=== PATIENT | male | born 1970 | race Caucasian/White ===

== ENCOUNTER 2018-10-04 11:19 | Observation (INO) | payer OTHER ==
[~2018-10-04] VITALS: Ht 182.9 cm; Wt 95.6 kg
[2018-10-04 11:40] LABS: HEMATOCRIT 43.8 % (39.0-50.0); HEMOGLOBIN 15.2 g/dl (14.0-18.0); IMMATURE GRANULOCYTES 0.8 % (0.0-5.0); MEAN CELL VOLUME 83.9 fL CALC (80.0-100.0); MEAN CORPUSCULAR HGB 29.1 pG CALC (26.0-32.0); MEAN CORPUSCULAR HGB CONC 34.7 g/L CALC (32.0-36.0); NEUT# 9.56 thou/uL (1.82-7.42); RED BLOOD COUNT 5.22 mill/uL (4.70-6.10); RED CELL DISTRI WIDTH 12.7 % (11.5-15.5)
[2018-10-04] MEDS ORDERED: LANTUS100 UNIT/M SC (11:55)
[2018-10-04] MEDS ORDERED: METFORMIN1000 MG PO (11:57)
[2018-10-04] MEDS ORDERED: NOVOLOG100 UNIT/M SC (11:57)
[2018-10-04] MEDS ORDERED: DULOXETINE HCL60 MG PO (11:58)
[2018-10-04] MEDS ORDERED: METOPROLOL SUCC50 MG PO (11:59)
[2018-10-04] MEDS ORDERED: LOSARTAN POT25 MG PO (12:02)
[2018-10-04] MEDS ORDERED: METO50TA52 PO (12:02)
[2018-10-04 12:03] LABS: ALBUMIN 4.9 g/dL (3.2-5.0); ALKALINE PHOSPHATASE 75 u/l (38-126); ANION GAP 22 (6-22 (CALC)); BILIRUBIN, TOTAL 0.6 mg/dL (0.0-1.4); BUN 14 mg/dL (9-20); BUN/CREATININE RATIO 19 (12-20 (CALC)); CARBON DIOXIDE 21 mmol/l (22-30); CHLORIDE 101 mmol/l (95-108); CREATININE 0.7 mg/dL (0.7-1.3); GFR > 60 ML/MIN (>=60 (CALC)); GFR FOR AFR.AMER. > 60 ML/MIN (>=60 (CALC)); SGOT/AST 24 u/l (17-59); SODIUM 140 mmol/l (137-146); TOTAL PROTEIN 7.9 g/dL (6.3-8.2)
[2018-10-04] MEDS ORDERED: AMITRIPTYLIN50 MG PO (12:03)
[2018-10-04 13:43] LABS: BARBITURATES NEGATIVE (NEGATIVE); COCAINE NEGATIVE (NEGATIVE); METHADONE NEGATIVE (NEGATIVE); OXCYCODONE NEGATIVE (NEGATIVE); TETRAHYDROCANNABIONOL NEGATIVE (NEGATIVE); TRICYLIC ANTIDEPRESSANTS NEGATIVE (NEGATIVE)
[2018-10-04 14:44] LABS: ALKALINE PHOSPHATASE 63 u/l (38-126); ANION GAP 18 (6-22 (CALC)); BILIRUBIN, TOTAL 0.6 mg/dL (0.0-1.4); BUN 13 mg/dL (9-20); BUN/CREATININE RATIO 22 (12-20 (CALC)); CARBON DIOXIDE 18 mmol/l (22-30); CHLORIDE 106 mmol/l (95-108); CREATININE 0.6 mg/dL (0.7-1.3); GFR > 60 ML/MIN (>=60 (CALC)); GFR FOR AFR.AMER. > 60 ML/MIN (>=60 (CALC)); POTASSIUM 4.5 mmol/l (3.5-5.1); SGOT/AST 32 u/l (17-59); SODIUM 138 mmol/l (137-146); TOTAL PROTEIN 6.6 g/dL (6.3-8.2)
[2018-10-04 17:50] VITALS: BP 152/80
[2018-10-04 20:44] VITALS: BP 150/79
[2018-10-04 23:37] VITALS: BP 142/65
[2018-10-05 04:25] VITALS: BP 128/56
[2018-10-05 05:19] LABS: HEMATOCRIT 40.1 % (39.0-50.0); HEMOGLOBIN 13.4 g/dl (14.0-18.0); IMMATURE GRANULOCYTES 0.3 % (0.0-5.0); MEAN CELL VOLUME 87.2 fL CALC (80.0-100.0); MEAN CORPUSCULAR HGB 29.1 pG CALC (26.0-32.0); MEAN CORPUSCULAR HGB CONC 33.4 g/L CALC (32.0-36.0); NEUT# 5.74 thou/uL (1.82-7.42); RED BLOOD COUNT 4.6 mill/uL (4.70-6.10); RED CELL DISTRI WIDTH 13.3 % (11.5-15.5)
[2018-10-05 05:39] LABS: ALKALINE PHOSPHATASE 54 u/l (38-126); AMYLASE 282 u/l (30-110); ANION GAP 15 (6-22 (CALC)); BILIRUBIN, TOTAL 0.6 mg/dL (0.0-1.4); BUN 14 mg/dL (9-20); BUN/CREATININE RATIO 20 (12-20 (CALC)); CHLORIDE 105 mmol/l (95-108); CREATININE 0.7 mg/dL (0.7-1.3); GFR > 60 ML/MIN (>=60 (CALC)); GFR FOR AFR.AMER. > 60 ML/MIN (>=60 (CALC)); LIPASE 44 u/l (23-300); MAGNESIUM 1.9 mg/dL (1.6-2.3); POTASSIUM 4.3 mmol/l (3.5-5.1); SGOT/AST 21 u/l (17-59); SODIUM 140 mmol/l (137-146); TOTAL PROTEIN 6.4 g/dL (6.3-8.2)
[2018-10-05 05:43] LABS: CARBON DIOXIDE 24 mmol/l (22-30)
[2018-10-05 09:20] VITALS: BP 144/84
[2018-10-05 12:55] VITALS: BP 134/83
[2018-10-05] MEDS ORDERED: PROTONIX40 M2 PO (15:51)
[2018-10-05 15:52] VITALS: BP 156/86
== END 2018-10-05 16:15 | disposition home or self-care (01) | DRG 392 ==
LOC: ED 11:19 → ED-I 15:36 → ED 16:04 → MS2 16:05
PROVIDERS: Emergency Medicine; ADMIT Internal Medicine Nephrology; ATTEND Internal Medicine Nephrology
DX: R10.13 Epigastric pain (principal); K92.0 Hematemesis; K44.9 Diaphragmatic hernia without obstruction or gangrene; R07.9 Chest pain, unspecified; K21.9 Gastro-esophageal reflux disease without esophagitis; E87.2 Acidosis; I10 Essential (primary) hypertension; E11.9 Type 2 diabetes mellitus without complications; K59.00 Constipation, unspecified; R19.7 Diarrhea, unspecified; Z79.4 Long term (current) use of insulin
CPT/HCPCS: G0378; Q9967

== ENCOUNTER 2019-06-21 12:59 | Observation (INO) | payer OTHER ==
[~2019-06-21] VITALS: Ht 182.9 cm; Wt 100.0 kg
[~2019-06-21 12:59] MED LIST: AMITRIPTYLIN50 MG PO; DULOXETINE HCL60 MG PO; LANTUS100 UNIT/M SC; LOSARTAN POT25 MG PO; METFORMIN1000 MG PO; METO50TA52 PO; METOPROLOL SUCC50 MG PO; NOVOLOG100 UNIT/M SC; PROTONIX40 M2 PO
--- NOTE | 2019-06-21 13:40 | NUR ---
PT TO ROOM VIA WC PALE AND DIAPHORETIC, BEDSID EKG PERFORMED
--- NOTE | 2019-06-21 14:00 | NUR ---
PT ACTIVELY VOMITING. ORDERS RECEIVED
[2019-06-21 14:41] LABS: HEMATOCRIT 38.6 % (39.0-50.0); HEMOGLOBIN 13.1 g/dl (14.0-18.0); IMMATURE GRANULOCYTES 0.4 % (0.0-5.0); MEAN CORPUSCULAR HGB 27.7 pG CALC (26.0-32.0); MEAN CORPUSCULAR HGB CONC 33.9 g/dL CAL (32.0-36.0); NEUT# 8.36 thou/uL (1.82-7.42); RED BLOOD COUNT 4.73 mill/uL (4.70-6.10); RED CELL DISTRI WIDTH 14.3 % (11.5-15.5)
[2019-06-21 14:46] LABS: MEAN CELL VOLUME 81.6 fL CALC (80.0-100.0)
[2019-06-21 14:57] LABS: AMYLASE 204 u/l (30-110); ANION GAP 23 (6-22 (CALC)); BILIRUBIN, TOTAL 0.7 mg/dL (0.0-1.4); BUN 17 mg/dL (9-20); BUN/CREATININE RATIO 25 (12-20 (CALC)); CARBON DIOXIDE 21 mmol/l (22-30); CHLORIDE 99 mmol/l (95-108); CREATININE 0.7 mg/dL (0.7-1.3); GFR > 60 ML/MIN (>=60 (CALC)); GFR FOR AFR.AMER. > 60 ML/MIN (>=60 (CALC)); LIPASE 55 u/l (23-300); POTASSIUM 5.1 mmol/l (3.5-5.1); SGOT/AST 34 u/l (17-59); SODIUM 138 mmol/l (137-146)
[2019-06-21 15:00] LABS: ALKALINE PHOSPHATASE 84 u/l (38-126); TOTAL PROTEIN 8.3 g/dL (6.3-8.2)
[2019-06-21 15:12] LABS: MYOGLOBIN 27 ng/mL (0 - 121)
--- NOTE | 2019-06-21 15:37 | NUR ---
VOMITING HAS SUBSIDED AT THIS TIME
--- NOTE | 2019-06-21 16:38 | NUR ---
PT STATES STILL FEELS NAUSEATED, NO VOMITING LATELY. PT REMAINS WATCHING TV.
--- NOTE | 2019-06-21 17:38 | NUR ---
NOTIFIED OF PTS BLOOD PRESSURE OF , NO NEW ORDERS. NO VOMITING BUT STILL STATES FEELS NAUSEATED, STATES DOESNT THINK HE CAN GO HOME. THINKS IT IS FOOD POISONING
--- NOTE | 2019-06-21 18:02 | NUR ---
NO VOMITING IN LAST 2 HOURS.
[2019-06-21 18:17] LABS: URINE BILIRUBIN - DIPSTICK NEGATIVE (NEGATIVE); URINE BLOOD DIPSTICK NEGATIVE (NEGATIVE); URINE COLOR YELLOW; URINE GLUCOSE - DIPSTICK >=1000 mg/dL (NEGATIVE); URINE KETONE 40 mg/dL (NEGATIVE); URINE LEUK ESTERASE NEGATIVE (NEGATIVE); URINE NITRITE - DIPSTICK NEGATIVE (Negative); URINE PH 5.5 (4.5-8.0); URINE PROTEIN - DIPSTICK NEGATIVE (NEG-TRACE); URINE SPECIFIC GRAVITY 1.025; URINE UROBILINOGEN - DIPSTICK 0.2 E.U./dL (0.2)
[2019-06-21 19:05] VITALS: BP 158/86
--- NOTE | 2019-06-21 19:23 | NUR ---
CALLED REPORT TO FLOOR NURSE IS BUSY, WILL CALL ME BACK FOR REPORT
--- NOTE | 2019-06-21 19:52 | NUR ---
PT TAKEN TO FLOOR PER W/C
--- NOTE | 2019-06-21 20:05 | NUR ---
COMMUNICATION HAND OFF RECEIVED FROM DONELL REBOLLEDO. PT ORIENTED TO ROOM, CALL LIGHT, TV, AND BED CONTROL. ADMISSION CHARTING COMPLETED. POC REVIEWED WITH PATIENT. PT COMPLAIN OF GAS PAIN. KAILYN FROM [facility] CALLED TO CLARIFY METOPROLOL ORDER. DR SANZ NOTIFIED. DR MUÑOZ ALSO NOTIFIED OF PT'S COMPLAIN OF GAS PAIN. RUBBER TUBING SPLICER WILL CONTINUE TO MONITOR
--- NOTE | 2019-06-21 22:30 | NUR ---
PATIENT GIVEN APPLE JUICE. BUSINESS CONTROLLER JERAMY CONTINUE TO MONITOR
--- NOTE | 2019-06-22 | NUR ---
PATIENT IS SLEEPING AT THIS TIME. RESPIRATION IS EVEN AND UNLABORED.
[2019-06-22 04:00] VITALS: BP 112/62
--- NOTE | 2019-06-22 04:36 | NUR ---
PT DENIES PAIN AT THIS TIME. NO S/S OF DISTRESS. PT AGREES TO NOTIFY TECHNICAL ASST OF ANY CONCERNS. TECHNICAL ASST WILL CONTINUE TO MONITOR
--- NOTE | 2019-06-22 07:20 | NUR ---
REPORT RECEIVED DONELL LOZANO. PT RESTING IN BED ON LEFT SIDE WITH EYES CLOSED; AWAKENS SPONTANEOUSLY. C/O SOME CHEST/ABDOMINAL DISCOMFORT R/T COUGHING. RESPIATIONS EVEN AND UNLABORED ON ROOM AIR. DENIES NAUSEA. PLAN OF CARE REVIEWED. PT ENCOURAGED TO VERBALIZE CONCERNS. STATES UNDERSTANDING. SAFETY MEASURES IN PLACE. CALL LIGHT WITHIN REACH.
[2019-06-22 07:58] VITALS: BP 113/59
[2019-06-22] MEDS ORDERED: ZOFRAN4 MG/TAB PO (11:49)
[2019-06-22 11:50] VITALS: BP 112/73
--- NOTE | 2019-06-22 11:51 | NUR ---
DR. SANZ AT BEDSIDE.
--- NOTE | 2019-06-22 12:25 | NUR ---
IV site discontinued, cath intact. No edema , no redness, voices no discomfort.
--- NOTE | 2019-06-22 12:53 | NUR ---
Discharge instructions given. Patient verbalizes understanding of same. Discharged in stable condition via Ambulatory to Home. All belongings sent with pt.
== END 2019-06-22 12:55 | disposition home or self-care (01) | DRG 392 ==
LOC: ED 12:59 → ED-I 18:28 → ED 18:39 → ED-I 18:40 → MS2 19:05
PROVIDERS: Family Medicine; ADMIT Internal Medicine; ATTEND Internal Medicine
DX: K52.9 Noninfective gastroenteritis and colitis, unspecified (principal); I10 Essential (primary) hypertension; E11.9 Type 2 diabetes mellitus without complications; Z79.4 Long term (current) use of insulin
CPT/HCPCS: G0378; J1650

== ENCOUNTER 2020-04-05 13:17 | Emergency (ER) | payer OTHER ==
[~2020-04-05] VITALS: Ht 182.9 cm; Wt 105.0 kg
[~2020-04-05 13:17] MED LIST changes: +ZOFRAN4 MG/TAB PO
[2020-04-05 14:43] LABS: IMMATURE GRANULOCYTES 0.5 % (0.0-5.0); MEAN CELL VOLUME 83.8 fL CALC (80.0-100.0); MEAN CORPUSCULAR HGB 27.8 pG CALC (26.0-32.0); MEAN CORPUSCULAR HGB CONC 33.2 g/dL CAL (32.0-36.0); NEUT# 7.16 thou/uL (1.82-7.42); RED BLOOD COUNT 5.61 mill/uL (4.70-6.10); RED CELL DISTRI WIDTH 13.2 % (11.5-15.5)
[2020-04-05 14:44] LABS: HEMOGLOBIN 15.6 g/dl (14.0-18.0)
[2020-04-05 15:00] LABS: ALBUMIN 4.8 g/dL (3.2-5.0); ALKALINE PHOSPHATASE 99 u/l (38-126); AMYLASE 274 u/l (30-110); ANION GAP 21 (6-22 (CALC)); BILIRUBIN, TOTAL 0.7 mg/dL (0.0-1.4); BUN 12 mg/dL (9-20); BUN/CREATININE RATIO 15 (12-20 (CALC)); CARBON DIOXIDE 20 mmol/l (22-30); CHLORIDE 101 mmol/l (95-108); CREATININE 0.8 mg/dL (0.7-1.3); GFR > 60 ML/MIN (>=60 (CALC)); GFR FOR AFR.AMER. > 60 ML/MIN (>=60 (CALC)); LIPASE 255 u/l (23-300); SGOT/AST 45 u/l (17-59); SODIUM 138 mmol/l (137-146); TOTAL PROTEIN 8.5 g/dL (6.3-8.2)
[2020-04-05 15:08] LABS: POTASSIUM 3.5 mmol/l (3.5-5.1)
[2020-04-05 16:09] LABS: MYOGLOBIN 22 ng/mL (0 - 121)
[2020-04-05] MEDS ORDERED: ONDANSETRON4 MG PO (17:10)
[2020-04-05] MEDS ORDERED: PREVACID30 M3 PO (17:10)
[2020-04-05] MEDS ORDERED: LORTAB 1010 MG PO (17:10)
[2020-04-05 17:37] VITALS: BP 183/89
[2020-04-06] MEDS ORDERED: INSULIN AS100 UNIT/M SC (01:14)
[2020-04-06] MEDS ORDERED: PHENERGAN25 MG RE (01:40)
== END 2020-04-05 17:48 | disposition home or self-care (01) | DRG 392 ==
LOC: ED 13:17
PROVIDERS: Emergency Medicine
DX: R10.13 Epigastric pain (principal); I10 Essential (primary) hypertension; E11.43 Type 2 diabetes mellitus with diabetic autonomic (poly)neuropathy; K31.84 Gastroparesis; Z79.4 Long term (current) use of insulin; Z20.822 Contact with and (suspected) exposure to COVID-19
CPT/HCPCS: Q9967; S0164

== ENCOUNTER 2020-04-06 00:10 | Emergency (ER) | payer OTHER ==
[~2020-04-06] VITALS: Ht 182.9 cm; Wt 105.0 kg
[~2020-04-06 00:10] MED LIST changes: +LORTAB 1010 MG PO; +ONDANSETRON4 MG PO; +PREVACID30 M3 PO
[2020-04-06 00:52] LABS: HEMATOCRIT 47.5 % (39.0-50.0); HEMOGLOBIN 15.9 g/dl (14.0-18.0); IMMATURE GRANULOCYTES 0.2 % (0.0-5.0); MEAN CELL VOLUME 82.3 fL CALC (80.0-100.0); MEAN CORPUSCULAR HGB 27.6 pG CALC (26.0-32.0); MEAN CORPUSCULAR HGB CONC 33.5 g/dL CAL (32.0-36.0); NEUT# 10.83 thou/uL (1.82-7.42); RED BLOOD COUNT 5.77 mill/uL (4.70-6.10); RED CELL DISTRI WIDTH 13.4 % (11.5-15.5)
[2020-04-06 01:13] LABS: ALBUMIN 5.1 g/dL (3.2-5.0); ALKALINE PHOSPHATASE 103 u/l (38-126); AMYLASE 241 u/l (30-110); ANION GAP 25 (6-22 (CALC)); BILIRUBIN, TOTAL 0.7 mg/dL (0.0-1.4); BUN 13 mg/dL (9-20); BUN/CREATININE RATIO 16 (12-20 (CALC)); CARBON DIOXIDE 18 mmol/l (22-30); CHLORIDE 102 mmol/l (95-108); CREATININE 0.8 mg/dL (0.7-1.3); GFR > 60 ML/MIN (>=60 (CALC)); GFR FOR AFR.AMER. > 60 ML/MIN (>=60 (CALC)); LIPASE 52 u/l (23-300); POTASSIUM 4.2 mmol/l (3.5-5.1); SGOT/AST 45 u/l (17-59); SODIUM 140 mmol/l (137-146); TOTAL PROTEIN 8.7 g/dL (6.3-8.2)
[2020-04-06] MEDS ORDERED: INSULIN AS100 UNIT/M SC (01:14)
[2020-04-06] MEDS ORDERED: PHENERGAN25 MG RE (01:40)
[2020-04-06 04:10] VITALS: BP 164/84
== END 2020-04-06 04:10 | disposition home or self-care (01) | DRG 392 ==
LOC: ED 00:10
PROVIDERS: Family Medicine
DX: R10.13 Epigastric pain (principal); R11.2 Nausea with vomiting, unspecified; I10 Essential (primary) hypertension; E11.43 Type 2 diabetes mellitus with diabetic autonomic (poly)neuropathy; K31.84 Gastroparesis; Z79.4 Long term (current) use of insulin
CPT/HCPCS: S0164

== ENCOUNTER 2020-05-14 00:47 | Observation (INO) | payer OTHER ==
[~2020-05-14] VITALS: Ht 182.9 cm; Wt 105.4 kg
[2020-05-14] VITALS (8 sets, daily range): BP systolic 135–169; BP diastolic 61–96
[~2020-05-14 00:47] MED LIST changes: +INSULIN AS100 UNIT/M SC; +PHENERGAN25 MG RE
--- NOTE | 2020-05-14 00:51 | NUR ---
TO TX ROOM WITH STEADY GAIT
--- NOTE | 2020-05-14 01:00 | NUR ---
PT BROUGHT IN BY SO FOR COMPLAINT OF TAKING TOO MUCH OF HIS THC GUMMIES TONIGHT IN ATTEMPT TO TRY AND SLEEP TONIGHT HE RECENTLY RAN OUT OF HIS GABAPENTIN THAT HE STATES HE TAKES TO TRY AND HELP HIM SLEEP. PT IS ALERT AND ORIENTED TO PERSON. UNABLE TO DESCRIBE WHERE HE IS CURRENTLY BUT STATES "IM IN A DIFFERENT REALITY RIGHT NOW, THIS ISNT HOW IT WAS BEFORE. I FEEL LIKE I AM IN A DIFFERENT PLACE. IM TRYING TO UNDERSTANDING WHATS GOING ON BUT I CANT." PT'S SIGNIFICANT OTHER REPORTS HE BECAME THIS WAY [address] [address] LAST NIGHT AND THIS TYPE OF EPISODE HAS NEVER HAPPENED BEFORE. PT REFUSING IV LINE AT THIS TIME BUT CONSENTED FOR BLOOD DRAW AT THIS TIME. VICE [employer] POLICE OFFICER IN PLACE. CHANGED INTO GOWN.
[2020-05-14] MEDS ORDERED: ATORVASTATIN CA10 MG PO (01:18)
[2020-05-14] MEDS ORDERED: METOPROLOL SUCC50 MG PO (01:19)
--- NOTE | 2020-05-14 01:20 | NUR ---
EVAL BY . AFTER WHICH, STROKE ALERT CALLED BY
--- NOTE | 2020-05-14 01:20 | NUR ---
DR LANG IN ROOM FOR EVAL AND REQUESTS STROKE ALERT BE CALLED FOR AMS.
--- NOTE | 2020-05-14 01:24 | NUR ---
IN RADIOLOGY WITH PT FOR CT SCAN. TELE NEURO DR VALENTINE ON LINE FOR PT EVAL OF STROKE ALERT. PER DR TOVAR NIH OF 0 AND MORE OF A AMS R/T THC INGESTION. CT SCANS PERFORMED PER ORDER. PT TOLERATED WELL. PT CONSENTED FOR IV START WHILE IN CT.
[2020-05-14 01:48] LABS: HEMATOCRIT 43.1 % (39.0-50.0); IMMATURE GRANULOCYTES 0.3 % (0.0-5.0); MEAN CELL VOLUME 86.5 fL CALC (80.0-100.0); MEAN CORPUSCULAR HGB 28.1 pG CALC (26.0-32.0); MEAN CORPUSCULAR HGB CONC 32.5 g/dL CAL (32.0-36.0); NEUT# 4.53 thou/uL (1.82-7.42); RED BLOOD COUNT 4.98 mill/uL (4.70-6.10); RED CELL DISTRI WIDTH 14.2 % (11.5-15.5)
--- NOTE | 2020-05-14 02:00 | NUR ---
RETURN FROM RADIOLOGY. PT CONTINUES TO SPEAK IN AN UNORGANIZED PATTERN. STATES " I WANTED TO KILL MYSELF IN THAT OTHER REALITY, I WANTED TO FALL OFF OF THE BED." PT IS NOW ALERT TO SELF, PLACE AND TIME. UNABLE TO RECALL EVENTS LEADING UP TO VISIT TONIGHT. PT S/O REPORTS BEING SEEN AT [facility] ED 2-3 DAYS AGO FOR "NOT FEELING GOOD." UNABLE TO TO ELABORATE DIAGNOSIS OR OUTCOME FROM VISIT.
[2020-05-14 02:05] LABS: ACT PARTIAL THROMBO TIME 24.8 SECONDS (20.0-32.5); PROTHROMBIN TIME 10.4 SECONDS (9.0-12.5)
[2020-05-14 02:06] LABS: ALBUMIN 4.3 g/dL (3.2-5.0); ALKALINE PHOSPHATASE 66 u/l (38-126); ANION GAP 12 (6-22 (CALC)); BILIRUBIN, TOTAL 0.5 mg/dL (0.0-1.4); BUN 16 mg/dL (9-20); BUN/CREATININE RATIO 20 (12-20 (CALC)); CARBON DIOXIDE 25 mmol/l (22-30); CHLORIDE 102 mmol/l (95-108); CREATININE 0.8 mg/dL (0.7-1.3); ETHYL ALCOHOL 0 mg/dl (0-30); GFR > 60 ML/MIN (>=60 (CALC)); GFR FOR AFR.AMER. > 60 ML/MIN (>=60 (CALC)); LIPASE 77 u/l (23-300); MAGNESIUM 2.2 mg/dL (1.6-2.3); SGOT/AST 46 u/l (17-59); SODIUM 135 mmol/l (137-146); TOTAL PROTEIN 7.4 g/dL (6.3-8.2)
--- NOTE | 2020-05-14 03:10 | NUR ---
PT PROVIDED URINAL TO PROVIDE URINE SAMPLE. RESTING ON STRETCHER WITH EYES CLOSED AND WARM BLANKET PROVIDED.
--- NOTE | 2020-05-14 04:00 | NUR ---
PT RESTING ON STRETCHER IN NAD. RESP EVEN AND UNLABORED. SKIN WARM AND DRY. TUBE BUILDER IN PLACE. SITTER BEDSIDE WITH PT.
--- NOTE | 2020-05-14 05:00 | NUR ---
PT RESTING ON STRETCHER IN NO APPARENT DISTRESS. RESP EVEN AND UNLABORED. SKIN WARM AND DRY. SKIN WARM AND DDRY. SITTER BEDSIDE.
--- NOTE | 2020-05-14 06:00 | NUR ---
PT RESTING ON STRETCHER IN NO APPARENT DISTRESS. RESP EVEN AND UNLABORED. SKIN WARM AND DRY. SOCIAL ORGANIZATION PROFESSOR IN PLACE SHOWING SR @ 88. SPO2 @ 98 %RA.
--- NOTE | 2020-05-14 06:45 | NUR ---
PT REPORT PROVIDED TO SHARRON MARLEY
--- NOTE | 2020-05-14 07:00 | NUR ---
PT RESTING ON STRETCHER WITH EYES CLOSED RESPONDS TO VERBAL STIMULI, IV SITE HEALTHY. VSS. RESP EVEN AND UNLABORED.
--- NOTE | 2020-05-14 07:05 | NUR ---
REPORT GIVEN TO ANUJA MARLEY
--- NOTE | 2020-05-14 07:43 | NUR ---
PT TO ICU RM 4 VIA STRETCHER IN STABLE CONDITION. IV SITE HEALTHY. FLUIDS INFUSING. VSS. ACCOMPANIED BY STAFF AND SITTER.
[2020-05-14] MEDS ORDERED: LIPITOR20 M1 PO (08:04)
[2020-05-14] MEDS ORDERED: TRESIBA100 UNIT/M SC (08:05)
[2020-05-14] MEDS ORDERED: HALCION0.25 M1 PO (08:06)
[2020-05-14] MEDS ORDERED: GABAPENTIN100 MG PO (08:06)
--- NOTE | 2020-05-14 08:30 | NUR ---
PT RECEIVED FROM ER VIA STRETCHER ACCOMPANIED BY SHARRON MARLEY. PT IS QUIET, UNASSUMING, BUT IS CONFUSED WHEN CONVERSATION IS ATTEMPTED. PT WAS ABLE TO PROVIDE URINE SPECIMEN, SENT TO LAB FOR ANALYSIS. PT SEEN BY DR VILLARREAL SHORTLY AFTER ARRIVAL, WILL MEDICALLY CLEAR IF DRUG SCREEN IS CLEAR. PT IN NO DISTRESS, OFFERS NO COMPLAINTS.
[2020-05-14 08:46] LABS: URINE BILIRUBIN - DIPSTICK NEGATIVE (NEGATIVE); URINE BLOOD DIPSTICK NEGATIVE (NEGATIVE); URINE COLOR YELLOW; URINE GLUCOSE - DIPSTICK >=1000 mg/dL (NEGATIVE); URINE KETONE NEGATIVE (NEGATIVE); URINE LEUK ESTERASE NEGATIVE (NEGATIVE); URINE NITRITE - DIPSTICK NEGATIVE (Negative); URINE PH 5.5 (4.5-8.0); URINE PROTEIN - DIPSTICK NEGATIVE (NEG-TRACE); URINE SPECIFIC GRAVITY 1.025; URINE UROBILINOGEN - DIPSTICK 0.2 E.U./dL (0.2)
--- NOTE | 2020-05-14 10:34 | NUR ---
IV SITE TO RAC REMOVED WITH CATHETER INTACT, PT TOLERATED WELL.
--- NOTE | 2020-05-14 11:01 | NUR ---
PT LEAVES FOR [facility] WITH WINDOW GLAZIER HELPER AT THIS TIME. PT ABLE TO BEAR HIS OWN WEIGHT, TRANSFERS TO WHEELCHAIR WITHOUT ANY PROBLEM.
== END 2020-05-14 11:00 | DRG 917 ==
LOC: ED 00:47 → ED-I 01:26 → ED 02:58 → ED-I 02:59 → ICU 08:01
PROVIDERS: ADMIT Internal Medicine; ATTEND Internal Medicine
DX: T40.7X1A Poisoning by cannabis (derivatives), accidental (unintentional), initial encounter (principal); G92 Toxic encephalopathy; R45.851 Suicidal ideations; I10 Essential (primary) hypertension; E11.43 Type 2 diabetes mellitus with diabetic autonomic (poly)neuropathy; K31.84 Gastroparesis; F32.9 Major depressive disorder, single episode, unspecified; T42.6X6A Underdosing of other antiepileptic and sedative-hypnotic drugs, initial encounter; Z79.4 Long term (current) use of insulin; Y92.009 Unspecified place in unspecified non-institutional (private) residence as the place of occurrence of the external cause; Z91.128 Patient's intentional underdosing of medication regimen for other reason; Z20.822 Contact with and (suspected) exposure to COVID-19

== ENCOUNTER 2021-05-23 00:37 | Emergency (ER) | payer OTHER ==
[~2021-05-23] VITALS: Ht 182.9 cm; Wt 105.0 kg
[~2021-05-23 00:37] MED LIST changes: +ATORVASTATIN CA10 MG PO; +GABAPENTIN100 MG PO; +HALCION0.25 M1 PO; +LIPITOR20 M1 PO; +TRESIBA100 UNIT/M SC
[2021-05-23] MEDS ORDERED: GABAPENTIN300 M2 PO (01:07)
[2021-05-23] MEDS ORDERED: OMEPRAZOLE20 MG PO (01:08)
[2021-05-23] MEDS ORDERED: LOSARTAN POTASS50 MG PO (01:09)
[2021-05-23] MEDS ORDERED: FLUOXETINE20 MG PO (01:09)
[2021-05-23] MEDS ORDERED: ALPRAZOLAM0.25 MG PO (01:10)
[2021-05-23] MEDS ORDERED: HALCION0.25 M1 PO (01:11)
[2021-05-23 01:24] LABS: IMMATURE GRANULOCYTES 0.3 % (0.0-5.0); MEAN CELL VOLUME 90.1 fL CALC (80.0-100.0); MEAN CORPUSCULAR HGB 32.4 pG CALC (26.0-32.0); NEUT# 5.94 thou/uL (1.82-7.42); RED BLOOD COUNT 5.58 mill/uL (4.70-6.10); RED CELL DISTRI WIDTH 12.2 % (11.5-15.5)
[2021-05-23 01:27] LABS: HEMATOCRIT 50.3 % (39.0-50.0); HEMOGLOBIN 18.1 g/dl (14.0-18.0)
[2021-05-23 01:44] LABS: ALBUMIN 5.1 g/dL (3.2-5.0); ALKALINE PHOSPHATASE 73 u/l (38-126); AMYLASE 226 u/l (30-110); ANION GAP 24 (6-22 (CALC)); BILIRUBIN, TOTAL 0.6 mg/dL (0.0-1.4); BUN 17 mg/dL (9-20); BUN/CREATININE RATIO 17 (12-20 (CALC)); CARBON DIOXIDE 20 mmol/l (22-30); CHLORIDE 101 mmol/l (95-108); GFR > 60 ML/MIN (>=60 (CALC)); GFR FOR AFR.AMER. > 60 ML/MIN (>=60 (CALC)); LIPASE 65 u/l (23-300); POTASSIUM 3.6 mmol/l (3.5-5.1); SGOT/AST 34 u/l (17-59); SODIUM 141 mmol/l (137-146)
[2021-05-23 01:45] LABS: TOTAL PROTEIN 9.1 g/dL (6.3-8.2)
[2021-05-23 01:55] LABS: MYOGLOBIN 27 ng/mL (0 - 121)
[2021-05-23 02:42] LABS: URINE BILIRUBIN - DIPSTICK NEGATIVE (NEGATIVE); URINE BLOOD DIPSTICK NEGATIVE (NEGATIVE); URINE COLOR YELLOW; URINE GLUCOSE - DIPSTICK >=1000 mg/dL (NEGATIVE); URINE KETONE 40 mg/dL (NEGATIVE); URINE LEUK ESTERASE NEGATIVE (NEGATIVE); URINE PROTEIN - DIPSTICK TRACE mg/dL (NEG-TRACE); URINE SPECIFIC GRAVITY >=1.030; URINE UROBILINOGEN - DIPSTICK 0.2 E.U./dL (0.2)
[2021-05-23 02:43] LABS: URINE NITRITE - DIPSTICK NEGATIVE (Negative)
[2021-05-23] MEDS ORDERED: ONDANSETRON4 MG PO (03:57)
[2021-05-23] MEDS ORDERED: ULTRAM50 M1 PO (03:57)
[2021-05-23] MEDS ORDERED: PREVACID30 M3 PO (03:57)
[2021-05-23 04:14] VITALS: BP 158/98
== END 2021-05-23 05:55 | disposition home or self-care (01) | DRG 74 ==
LOC: ED 00:37
PROVIDERS: Emergency Medicine
DX: E11.43 Type 2 diabetes mellitus with diabetic autonomic (poly)neuropathy (principal); K31.84 Gastroparesis; I10 Essential (primary) hypertension; F32.A Depression, unspecified; Z79.4 Long term (current) use of insulin
CPT/HCPCS: Q9967; S0164

== ENCOUNTER → 2021-12-23 | Emergency (ER) | payer OTHER ==
[~2021-12-23] VITALS: Ht 182.9 cm; Wt 100.0 kg
[~2021-12-23] MED LIST changes: +ALPRAZOLAM0.25 MG PO; +FLUOXETINE20 MG PO; +GABAPENTIN300 M2 PO; +LIPITOR40 M1 PO; +LOSARTAN POTASS50 MG PO; +OMEPRAZOLE20 MG PO; +OZEMPIC2 MG/1.5 M; +ULTRAM50 M1 PO
[2021-12-23 23:22] LABS: HEMOGLOBIN 16.2 g/dl (14.0-18.0); IMMATURE GRANULOCYTES 0.2 % (0.0-5.0); MEAN CELL VOLUME 90.2 fL CALC (80.0-100.0); MEAN CORPUSCULAR HGB CONC 36.6 g/dL CAL (32.0-36.0); NEUT# 7.68 thou/uL (1.82-7.42); RED BLOOD COUNT 4.91 mill/uL (4.70-6.10); RED CELL DISTRI WIDTH 11.9 % (11.5-15.5)
[2021-12-23 23:26] LABS: HEMATOCRIT 44.3 % (39.0-50.0)
[2021-12-23 23:33] LABS: ALKALINE PHOSPHATASE 78 u/l (38-126); ANION GAP 18 (6-22 (CALC)); BUN 13 mg/dL (9-20); BUN/CREATININE RATIO 14 (12-20 (CALC)); CARBON DIOXIDE 21 mmol/l (22-30); CHLORIDE 102 mmol/l (95-108); CREATININE 0.9 mg/dL (0.7-1.3); GFR FOR AFR.AMER. > 60 ML/MIN (>=60 (CALC)); GFR OTHER RACES > 60 ML/MIN (>=60 (CALC)); LIPASE 136 u/l (23-300); POTASSIUM 3.6 mmol/l (3.5-5.1); SGOT/AST 35 u/l (17-59); SODIUM 138 mmol/l (137-146); TOTAL PROTEIN 8.6 g/dL (6.3-8.2)
[2021-12-23 23:34] LABS: BILIRUBIN, TOTAL 1.1 mg/dL (0.0-1.4)
[2021-12-24 01:44] LABS: URINE BILIRUBIN - DIPSTICK NEGATIVE (NEGATIVE); URINE BLOOD DIPSTICK NEGATIVE (NEGATIVE); URINE COLOR YELLOW; URINE GLUCOSE - DIPSTICK 100 mg/dL (NEGATIVE); URINE KETONE 15 mg/dL (NEGATIVE); URINE LEUK ESTERASE NEGATIVE (NEGATIVE); URINE PH 5.5 (4.5-8.0); URINE PROTEIN - DIPSTICK TRACE mg/dL (NEG-TRACE); URINE UROBILINOGEN - DIPSTICK 0.2 E.U./dL (0.2)
[2021-12-24 01:50] LABS: URINE NITRITE - DIPSTICK NEGATIVE (Negative)
[2021-12-24 03:15] VITALS: BP 140/79
== END | disposition home or self-care (01) | DRG 74 ==
LOC: ED 21:59
PROVIDERS: Family Medicine
DX: E11.43 Type 2 diabetes mellitus with diabetic autonomic (poly)neuropathy (principal); K31.84 Gastroparesis; I10 Essential (primary) hypertension; F32.A Depression, unspecified; Z79.4 Long term (current) use of insulin
CPT/HCPCS: Q9967